=== PATIENT | male | born 1950 ===

== ENCOUNTER 2023-12-31 17:08 | Emergency (ER) | payer OTHER ==
[~2023-12-31] VITALS: Ht 175.3 cm; Wt 82.0 kg
[2023-12-31 17:16] VITALS: BP 177/115; PULSE 87; RESP 16; TEMP 98; O2SAT 98
[2023-12-31] MEDS ORDERED: CARV6 PO (17:26)
[2023-12-31] MEDS ORDERED: GABA-1216 PO (17:26)
[2023-12-31] MEDS ORDERED: LOSA-381 PO (17:26)
[2023-12-31] MEDS ORDERED: ATOR20TA PO (17:26)
[2023-12-31] MEDS ORDERED: APIX5TAB PO (17:26)
== END 2023-12-31 21:51 | disposition left against medical advice (07) ==
LOC: EMS 17:08
DX: M25.511 Pain in right shoulder (principal); Z53.21 Procedure and treatment not carried out due to patient leaving prior to being seen by health care provider
CPT/HCPCS: 73030-TC